=== PATIENT | male | born 1945 | race Caucasian/White ===

== ENCOUNTER 2017-08-16 06:44 | Inpatient (IN) | payer MEDICARE, BC ==
--- NOTE | 2017-08-12 11:29 | Diagnostic Imaging Report ---
PROCEDURE: Frontal and lateral views of the chest. COMPARISON: None. INDICATIONS: PREOPERATIVE CHEST XRAY FOR RIGHT SHOULDER SURGERY FINDINGS: Lines/tubes: None. Lungs: The lungs are well inflated and clear. There is no evidence of pneumonia or pulmonary edema. Pleura: There is no pleural effusion or pneumothorax. Heart and mediastinum: The heart and the mediastinum are normal. Bones: No acute bony abnormality. Degenerative changes in the thoracic spine and right glenohumeral joint.. IMPRESSION: 1. No acute cardiopulmonary abnormalities. Milan Roberts M.D. Dictated by: Milan Roberts M.D. on 08/12/2017 at 11:33 Electronically approved by: Milan Roberts M.D. on 08/12/2017 at 11:33
[2017-08-13 11:44] LABS: BASOPHILS # (AUTO) 0.1 (0.0-0.1); BASOPHILS % 0.4 % (0.0-1.0); EOSINOPHILS # (AUTO) 0.3 (0.0-0.4); EOSINOPHILS % 2.7 % (0.0-6.0); HEMATOCRIT 34.8 % (38.2-49.6); HEMOGLOBIN 11.7 g/dL (14.0-18.0); LYMPHOCYTES # (AUTO) 3.2 (1.0-3.2); LYMPHOCYTES % 27.5 % (18.0-39.1); MEAN CORPUSCULAR HEMOGLOBIN 27.7 pg (28-32); MEAN CORPUSCULAR HGB CONC 33.6 g/dL (31-35); MEAN CORPUSCULAR VOLUME 82.5 fL (81-99); MONOCYTES % 8.9 % (4.4-11.3); NEUTROPHILS # (AUTO) 6.9 (2.1-6.9); NEUTROPHILS % 60.2 % (38.7-80.0); PLATELET COUNT 267 x10e3/uL (140-360); RED BLOOD COUNT 4.22 x10e6/uL (4.3-5.7); RED CELL DISTRIBUTION WIDTH 14.8 % (11.7-14.4)
[2017-08-13 12:01] LABS: ANION GAP 15.2 mmol/L (8-16); BLOOD UREA NITROGEN 18 mg/dL (7-26); BUN/CREATININE RATIO 20 (6-25); CALCIUM 9.2 mg/dL (8.4-10.2); CARBON DIOXIDE 29 mmol/L (22-29); CHLORIDE 93 mmol/L (98-107); CREATININE, SERUM 0.91 mg/dL (0.72-1.25); EST GLOMERULAR FILTRATION RATE > 60 ML/MIN (60-); GLUCOSE 229 mg/dL (74-118); POTASSIUM 4.2 mmol/L (3.5-5.1); SODIUM 133 mmol/L (136-145)
[~2017-08-16] VITALS: Ht 177.8 cm; Wt 102.1 kg
[~2017-08-16 06:44] MED LIST: AMLODIPINE BESY10 MG PO; ASPIR 8181 MG PO; ATORVASTATIN CA20 MG PO; CARVEDILOL25 MG PO; GLIMEPIRIDE2 MG PO; METFORMIN HCL500 MG PO; NATEGLINIDE60 MG PO
[2017-08-16] MEDS ORDERED: CEFAZOLIN SOD 1 GM VIAL ONE (06:54)
[2017-08-16] MEDS ORDERED: INSULIN REGULAR, HUMAN 100 UNIT/1 ML 3ML VIAL ONE (07:28)
[2017-08-16] MEDS ORDERED: TRANEXAMIC ACID 1,000 MG/10 ML ML ONE (08:34)
[2017-08-16] MEDS ORDERED: LIDOCAINE 1% W/EPINEPHRINE 20 ML VIAL ONE (08:49)
[2017-08-16] MEDS ORDERED: SODIUM CHLORIDE 0.9% 1000ML 1,000 ML IV SCH (10:04)
[2017-08-16] MEDS ORDERED: HYDROCODONE/APAP 7.5MG-325MG 1 EA TAB PO PRN (10:15)
[2017-08-16] MEDS ORDERED: DIPHENHYDRAMINE HCL INJ 50 MG/ML VIAL IM/IV PRN (10:15)
[2017-08-16] MEDS ORDERED: ONDANSETRON HCL INJ 2 MG/ML VIAL IV PRN (10:15)
[2017-08-16] MEDS ORDERED: HYDROCODONE/APAP 5MG-325MG TAB PO PRN (10:15)
[2017-08-16] MEDS ORDERED: DOCUSATE SODIUM 100 MG CAP PO PRN (10:15)
[2017-08-16] MEDS ORDERED: ACETAMINOPHEN 650 MG SUPP PR PRN (10:15)
[2017-08-16] MEDS ORDERED: PROMETHAZINE HCL (IM) 25 MG/ML VIAL IM PRN (10:15)
[2017-08-16] MEDS ORDERED: KETOROLAC TROMETHAMINE 30 MG/ML VIAL IV PRN (10:15)
[2017-08-16 11:49] VITALS: BP 139/61
[2017-08-16 12:00] VITALS: BP 129/84
[2017-08-16] MEDS: ACETAMINOPHEN 1000 MG/100 ML IV SCH ×2 (12:28→17:47)
[2017-08-16 16:00] VITALS: BP 126/72
[2017-08-16] MEDS ORDERED: NON-FORMULARY MEDICATION (Nateglinide 60 MG) PO SCH (17:00)
[2017-08-16] MEDS ORDERED: NON-FORMULARY MEDICATION (Carvedilol 25 MG) PO SCH (17:00)
[2017-08-16] MEDS ORDERED: EPHEDRINE SULFATE INJ 50 MG/10 ML SYR ONE (17:20)
[2017-08-16] MEDS ORDERED: KETOROLAC TROMETHAMINE 30 MG/ML VIAL ONE (17:20)
[2017-08-16] MEDS ORDERED: ONDANSETRON HCL INJ 2 MG/ML VIAL ONE (17:20)
[2017-08-16] MEDS ORDERED: NEOSTIGMINE 5 MG/5ML SYR ONE (17:20)
[2017-08-16] MEDS ORDERED: ROCURONIUM BROMIDE 10 MG/ML 5ML VIAL ONE (17:20)
[2017-08-16] MEDS ORDERED: PROPOFOL IV EMULSION 10 MG/ML 20 ML VIAL ONE (17:20)
[2017-08-16] MEDS ORDERED: GLYCOPYRROLATE INJ 1MG/ 5 ML SYR ONE (17:20)
[2017-08-16] MEDS ORDERED: LIDOCAINE HCL 2% LOCAL INJ 5 ML SDV VIAL INJ ONE (17:20)
[2017-08-16] MEDS ORDERED: SEVOFLURANE INHAL SOLN 250 ML PEN BTL ONE (17:20)
[2017-08-16] MEDS ORDERED: ROPIVACAINE 0.5% 5 MG/ML 30 ML SDV ONE (17:39)
[2017-08-16] MEDS ORDERED: LIDOCAINE HCL 2% LOCAL 20 ML VIAL ONE (17:39)
[2017-08-16] MEDS ORDERED: FENTANYL CITRATE/PF 100MCG/2 ML INJ ONE (17:40)
[2017-08-16] MEDS ORDERED: MIDAZOLAM HCL 2 MG/2 ML VIAL ONE (17:40)
[2017-08-16] MEDS: GLIMEPIRIDE 2 MG TAB PO SCH (17:46)
[2017-08-16] MEDS: ASPIRIN 325 MG TAB PO SCH (17:46)
[2017-08-16] MEDS: CELECOXIB 100 MG CAP PO SCH (17:46)
[2017-08-16] MEDS: CARVEDILOL 12.5 MG TAB PO SCH (17:46)
[2017-08-16] MEDS: METFORMIN HCL 500 MG TAB PO SCH (17:47)
[2017-08-16] MEDS: NATEGLINIDE 120 MG TAB PO SCH (17:47)
[2017-08-16] MEDS: CEFAZOLIN SOD 1 GM/D5W 50ML 50 ML IV SCH (18:07)
[2017-08-16 20:00] VITALS: BP 149/88
[2017-08-16 20:10] VITALS: BP 149/88
[2017-08-16] MEDS ORDERED: ZOLPIDEM TARTRATE 5 MG TAB PO PRN (21:00)
[2017-08-16] MEDS ORDERED: ATORVASTATIN 20 MG TAB PO SCH (21:00)
[2017-08-16] MEDS ORDERED: AMLODIPINE BESYLATE 10 MG TAB PO SCH (21:00)
[2017-08-17] VITALS: BP 160/70
[2017-08-17] MEDS: CEFAZOLIN SOD 1 GM/D5W 50ML 50 ML IV SCH ×2 (00:30→08:06)
[2017-08-17 04:00] VITALS: BP 141/63
[2017-08-17] MEDS: ACETAMINOPHEN 1000 MG/100 ML IV SCH ×2 (06:56)
[2017-08-17 07:09] LABS: BASOPHILS # (AUTO) 0.1 (0.0-0.1); BASOPHILS % 0.3 % (0.0-1.0); EOSINOPHILS # (AUTO) 0.1 (0.0-0.4); EOSINOPHILS % 0.7 % (0.0-6.0); HEMATOCRIT 36.3 % (38.2-49.6); HEMOGLOBIN 11.8 g/dL (14.0-18.0); LYMPHOCYTES # (AUTO) 2.8 (1.0-3.2); LYMPHOCYTES % 17.2 % (18.0-39.1); MEAN CORPUSCULAR HEMOGLOBIN 27.5 pg (28-32); MEAN CORPUSCULAR HGB CONC 32.5 g/dL (31-35); MEAN CORPUSCULAR VOLUME 84.6 fL (81-99); MONOCYTES # (AUTO) 1.4 (0.2-0.8); MONOCYTES % 8.3 % (4.4-11.3); NEUTROPHILS # (AUTO) 11.8 (2.1-6.9); NEUTROPHILS % 72.8 % (38.7-80.0); PLATELET COUNT 331 x10e3/uL (140-360); RED BLOOD COUNT 4.29 x10e6/uL (4.3-5.7); RED CELL DISTRIBUTION WIDTH 14.5 % (11.7-14.4)
[2017-08-17 07:26] LABS: ALBUMIN 3.1 g/dL (3.5-5.0); ALBUMIN/GLOBULIN RATIO 0.9 (0.8-2.0); CALCIUM 9.2 mg/dL (8.4-10.2); CREATININE, SERUM 1.21 mg/dL (0.72-1.25)
[2017-08-17] MEDS: NATEGLINIDE 120 MG TAB PO SCH (08:06)
[2017-08-17] MEDS: CELECOXIB 100 MG CAP PO SCH (08:06)
[2017-08-17] MEDS: GLIMEPIRIDE 2 MG TAB PO SCH (08:06)
[2017-08-17] MEDS: METFORMIN HCL 500 MG TAB PO SCH (08:06)
[2017-08-17] MEDS: ASPIRIN 325 MG TAB PO SCH (08:06)
[2017-08-17] MEDS: CARVEDILOL 12.5 MG TAB PO SCH (08:07)
[2017-08-17 08:10] VITALS: BP 123/56
[2017-08-17 08:20] VITALS: BP 123/56
--- NOTE | 2017-08-17 09:30 | Consultation ---
DATE OF CONSULTATION: August 17, 2017 MEDICINE CONSULT REASON FOR CONSULTATION: Medical management. This is a 72-year-old white man who underwent successful right humerus open reduction internal fixation on Wednesday, August 16, 2017. This surgery was performed by his orthopedic surgeon, namely Dr. Jt Palmer. The patient currently voices no complaints. The patient states his pain is well controlled. Today's blood work revealed a BUN and creatinine of 10 and 1.2 respectively. On August 13, 2017, the patient's BUN and creatinine was 18 and 0.91 respectively. Also, the patient's potassium today is 5, and on August 13, 2017, it was 4.2. Also, today's white blood cell count is 16,200 with 72% segmented neutrophils. On August 13, 2017, the patient's white blood cell count was 11,500 with 60% segmented neutrophils. The patient denies any fever or chills. The patient had a chest x-ray done on August 12, 2017, which was unremarkable, but it did reveal degenerative changes in the thoracic spine and right glenohumeral joint. The patient states that he fractured his right humeral neck after sustaining a mechanical fall. The fall actually occurred on August 04, 2017. REVIEW OF SYSTEMS GENERAL: Weight has been stable. No fever or chills. HEENT: No headaches. No vision changes. CARDIOVASCULAR/RESPIRATORY: No chest pain. No shortness of breath or cough. GI: No nausea, vomiting or constipation. : No BPH. NEUROMUSCULAR: The patient states his right shoulder pain is well controlled. The patient states he does experience cramping in his feet. ALLERGIES: NO KNOWN DRUG ALLERGIES. SURGICAL HISTORY 1. Left carotid stent placement. 2. Right humeral open reduction internal fixation on August 16, 2017. FAMILY HISTORY: Multiple family members with coronary artery disease, but no family history of type 2 diabetes mellitus. SOCIAL HISTORY: The man is and lives with his . He is retired. The patient states that he is a previous 30-pack year tobacco smoker, but he quit at age 49. Denies alcohol use. PAST MEDICAL HISTORY 1. Hypertensive heart disease. 2. Type 2 diabetes mellitus. 3. Mild obesity. 4. Hyperlipidemia. 5. Carotid atherosclerosis. HOME MEDICATIONS 1. Amlodipine 10 mg p.o. at bedtime. 2. Aspirin 81 mg a day. 3. Atorvastatin 20 mg at bedtime. 4. Carvedilol 25 mg b.i.d. 5. Glimepiride 2 mg b.i.d. 6. Metformin 500 mg b.i.d. 7. Starlix 120 mg t.i.d. with meals. PHYSICAL EXAMINATION GENERAL: He is awake. He is alert. He is oriented. He is very pleasant and cooperative with exam. VITALS: Height is 5 feet 10 inches, weight 225 pounds. BMI 32. Blood pressure is 120/56, pulse 72, respiratory rate 18, temperature 99.7, oxygen saturation 97% on room air. INTEGUMENT: Skin is warm and dry. No pallor or diaphoresis appreciated. CARDIOVASCULAR: Regular rate and rhythm. LUNGS: No rales. No rhonchi. No wheezing. ABDOMEN: Obesity. EXTREMITIES: No edema or deformity. The right shoulder is in an immobilizer sling. NEUROLOGICAL: Intact. DIAGNOSES 1. Status post right humeral neck open reduction internal fixation of repair of traumatic fracture. 2. 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 3. Acute renal insufficiency. 4. Hypertensive heart disease. 5. Obesity. BMI 32. PLAN 1. Stop all NSAIDs as the patient has acute renal insufficiency. 2. Gentle intravenous fluids. 3. Blood pressure monitor and control. 4. Blood glucose monitor and control. 5. Encourage incentive spirometer use. 6. The patient will likely be discharged home today or tomorrow. I spent 45 minutes in the care of the patient. I would like to thank Dr. Jt Palmer for this generous consult. Job#: [id number] MAZIN MCKEON
[2017-08-17] MEDS ORDERED: ACETAMINOPHEN 1000 MG/100 ML IV PRN (10:15)
--- NOTE | 2017-08-17 11:05 | Operative Report ---
DATE OF PROCEDURE: August 16, 2017 JOURNEYMAN MOLDER: Pedro Eaton PA-C The patient was brought to the operating room for induction of anesthesia. Throughout this case, my PA's assistance was necessary for retraction of soft tissue and positioning of the extremity. This allows for efficient and technically successful execution of the operation and is considered medically necessary. PREOPERATIVE DIAGNOSIS: Right proximal humerus fracture. POSTOPERATIVE DIAGNOSIS: Right proximal humerus fracture. PROCEDURE: Open reduction and internal fixation, right proximal humerus. INDICATIONS: The patient is a 72-year-old gentleman with a valgus impacted 3-part proximal humerus fracture of his right arm. The greater tuberosity is markedly displaced. The findings and options have been discussed. We plan on open reduction with internal fixation. The risks and benefits have been explained. The patient states he understands and wishes to proceed. DESCRIPTION OF PROCEDURE: The patient was brought to the operating room and placed under general anesthetic. He received a regional block, prophylactic antibiotics and tranexamic acid in the holding area. He was positioned on the shoulder table in the beach-chair position. His right upper extremity was prepped and draped in a sterile manner. Ten mL of 0.5% percent lidocaine with epinephrine was injected into the subcutaneous tissue for hemostasis. An axillary incision was made. The deltopectoral interval was identified. The cephalic vein was protected. The soft tissue was mobilized. A Healy Blount self-retaining retractor was placed. The displaced greater tuberosity fracture was mobilized. Retention stitches were placed in the myotendinous junction of the rotator cuff. This was brought back anteriorly. An osteotome was used to gently pry the humeral head back into a more anatomic position. This was quite severely impacted. A [employer] periarticular locking plate was then placed into the proximal humerus. With the greater tuberosity held in an anatomic position, the plate was locked down with a combination of compression and locking screws. Intraoperative x-rays appeared to show some persistent bone displacement. This was palpated. I could not find any evidence of persistent bone displacement. There was no sign of impingement as the arm was brought up into abduction. The wound was irrigated and closed. Subcuticular Vicryl and usha were used to close the skin. Estimated blood loss was 50 mL. At the end of the procedure, all needle and sponge counts were correct. Job#: [id number]
== END 2017-08-17 11:06 | disposition home health service (06) | DRG 493 ==
LOC: OR 06:44 → PACU V 10:06 → MED/SURG 11:32
PROVIDERS: ADMIT Specialist; ATTEND Specialist
PROC: 0PSC04Z Reposition Right Humeral Head with Internal Fixation Device, Open Approach (ICD-10-PCS; principal; 2017-08-16 09:00)
DX: S42.231A 3-part fracture of surgical neck of right humerus, initial encounter for closed fracture (principal); N17.9 Acute kidney failure, unspecified; E11.9 Type 2 diabetes mellitus without complications; I10 Essential (primary) hypertension; E78.5 Hyperlipidemia, unspecified; G47.30 Sleep apnea, unspecified; E66.9 Obesity, unspecified; Z68.32 Body mass index [BMI] 32.0-32.9, adult
CPT/HCPCS: 36415; 71046; 76001; 80048; 80053; 82948; 85025; 86850; 86900; 86920; 93005; J0690; J1885; J2001; J2250; J2405; J2795; J7030

== ENCOUNTER → 2017-10-15 | Outpatient (RCR) | payer MEDICARE, BC | LOC: PT 10-08 07:56 | PROVIDERS: ATTEND Specialist | DX: S42.231D 3-part fracture of surgical neck of right humerus, subsequent encounter for fracture with routine healing (principal); Z47.89 Encounter for other orthopedic aftercare; M25.511 Pain in right shoulder; M25.611 Stiffness of right shoulder, not elsewhere classified | CPT/HCPCS: 97010 ×2; 97110 ×4; 97140 ×3; 97162; G8984; G8985 ==

== ENCOUNTER 2017-11-12 09:54 | Outpatient (RCR) | payer MEDICARE, BC | END 2017-11-14 | LOC: PT 09:54 | PROVIDERS: ATTEND Specialist | DX: S42.231D 3-part fracture of surgical neck of right humerus, subsequent encounter for fracture with routine healing (principal); Z47.89 Encounter for other orthopedic aftercare; M25.661 Stiffness of right knee, not elsewhere classified; M62.81 Muscle weakness (generalized) | CPT/HCPCS: 97010 ×2; 97110 ×12; 97140 ×10; G8984; G8985 ==

== ENCOUNTER 2017-11-24 09:49 | Outpatient (RCR) | payer MEDICARE, BC | END 2017-12-15 | LOC: PT 09:49 | PROVIDERS: ATTEND Specialist | DX: S42.231D 3-part fracture of surgical neck of right humerus, subsequent encounter for fracture with routine healing (principal); Z47.89 Encounter for other orthopedic aftercare; M25.611 Stiffness of right shoulder, not elsewhere classified; M62.81 Muscle weakness (generalized) | CPT/HCPCS: 97110 ×4; 97139; 97140 ×3; G8985; G8986 ==

== ENCOUNTER → 2021-07-09 | Outpatient (CLI) | payer MEDICARE, BC ==
[~2021-07-09] MED LIST changes: +CIPRO500 MG PO; +LASIX40 MG PO; +LEVEMIR100 UNIT/1 SQ
== END ==
LOC: DX 10:17
PROVIDERS: ATTEND Otolaryngology
DX: R13.13 Dysphagia, pharyngeal phase (principal)
CPT/HCPCS: 74230